=== PATIENT | male | born 1980 | race Caucasian/White ===

== ENCOUNTER → 2019-03-15 11:49 | Outpatient (CLI) | payer OTHER, SELFPAY ==
--- NOTE | 2019-03-15 11:51 | DI.RAD.S_ITS ---
PROCEDURE: XR HIP W PEL IF DONE LT 2V INDICATIONS: left hip and back pain TECHNIQUE: 2 views of the hip were acquired. COMPARISON: [facility], CR, XR LUMBAR SPINE 2-3V, 03/15/2019, 11:53. FINDINGS: Bones: No fractures or dislocations. No suspicious bony lesions. The visualized pelvic ring appears intact. Soft tissues: No suspicious soft tissue calcifications or masses. IMPRESSION: Normal left hip. Dictated by: Jazmyne Hamilton M.D. on 03/15/2019 at 16:56 Approved by: Jazmyne Hamilton M.D. on 03/15/2019 at 16:58
--- NOTE | 2019-03-15 11:51 | DI.RAD.S_ITS ---
PROCEDURE: XR LUMBAR SPINE 2-3V INDICATIONS: left hip and back pain TECHNIQUE: The views of the lumbar spine were acquired. COMPARISON: None. FINDINGS: Bones: 5 [id number] vertebrae are present. There is normal bony alignment. No vertebral body compression fractures. No suspicious bony lesions. Soft tissues: Overlying bowel gas pattern is normal. No suspicious soft tissue calcifications. IMPRESSION: Normal appearance of the lumbar spine. No fracture or dislocation. Dictated by: Jazmyne Hamilton M.D. on 03/15/2019 at 16:58 Approved by: Jazmyne Hamilton M.D. on 03/15/2019 at 16:59
== END ==
PROVIDERS: PCP Family Medicine; Visit Provider Family Medicine
DX: M25.552 Pain in left hip (principal); M54.5 Low back pain
CPT/HCPCS: 72100; 73502